=== PATIENT | female | born 1955 | race Caucasian/White ===

== ENCOUNTER → 2016-07-09 19:29 | Outpatient (CLI) | payer OTHER | END | disposition home or self-care (01) | LOC: D.LABREF 19:29 | DX: E28.39 Other primary ovarian failure (principal) ==

== ENCOUNTER → 2016-07-19 06:12 | Outpatient (CLI) | payer OTHER | END | disposition home or self-care (01) | LOC: D.RAD 07-06 08:00 | DX: K21.9 Gastro-esophageal reflux disease without esophagitis (principal) ==

== ENCOUNTER 2016-07-26 06:07 | Day surgery (SDC) | payer OTHER ==
[~2016-07-26] VITALS: Ht 175.3 cm; Wt 71.4 kg
--- NOTE | ~2016-07-26 | OP ---
PATIENT NAME: MAXWELL SHIELDS MEDICAL RECORD: [id number] :57 LOCATION:D.OPS ADMISSION DATE: SURGEON: ESTEBAN CHOI MD DATE OF OPERATION: 07/26/2016 PREOPERATIVE DIAGNOSES: 1. Gastroesophageal reflux disease. 2. Fibromyalgia. POSTOPERATIVE DIAGNOSES: 1. Gastroesophageal reflux disease. 2. Fibromyalgia. PROCEDURE: EGD with biopsy. SURGEON: Esteban Choi MD. REPORT OF PROCEDURE: An Olympus endoscope was advanced through the mouth and the esophagus. We were able to pass through the pylorus into the duodenum. I could visualize the second portion of the duodenum. I can see the ampulla. As we pulled back, there appeared to be a small polyp. Attempts were made to biopsy this, but this was in an unusual angle and as we kept moving in and out to try and get in good position, this eventually disappeared. We eventually decided this probably was not a polyp and just a piece of food particle that was stuck to the side wall, but eventually moved out of the way. The ampulla was clearly visualized and it did not appear to show any inflammation or masses. The duodenum itself had no sign of any ulcerations or masses present. As we pulled back to the pylorus, there was no sign of any inflammatory changes or gastritis. Random biopsy was taken of the antrum near the pylorus and sent for permanent specimen. Retroflexed view showed that there was no sign of a hiatal hernia visible. The stomach did house few hyperplastic polyps, but no signs of any adenomatous polyps. As we pulled back, we noticed that the GE junction was at 40 cm from the teeth. There was some inflammatory ulcerative lesions present. Biopsy was taken times 2 of the GE junction. There was no sign of any active bleeding anywhere. We then removed the insufflation and pulled the scope back slowly through the esophagus and we could see there were no signs of any masses or ulcerations. At this point, the procedure was completed. COMPLICATIONS: None. CONDITION: Stable. ANESTHESIA: TIVA. BLOOD LOSS: Minimal. TRANSINT:[id number] Voice Confirmation ID: [id number] DOCUMENT ID: [id number] OPERATIVE REPORT [id number] MAXWELL SHIELDS ESTEBAN CHOI MD CC: CHAR HANSON DO [id number] DICTATION DATE: 07/26/16 1012 MANAGER GREEN: 07/26/16 1124 [facility] [address] [place] [address]
[2016-07-26 07:11] LABS: HEMATOCRIT 41.5 % (36.0-48.0); HEMOGLOBIN 13.9 g/dL (12-16); MCHC 33.5 g/dL (31.0-37.0); MCV 95.4 fL (80.0-100.0); MEAN PLATELET VOLUME 9.9 fL (7.4-10.4); PLATELET COUNT 258 10x3/uL (130-400); RBC 4.35 10x6/uL (4.00-5.40); RDW 12.7 % (11.5-14.5); WBC 6.5 10x3/uL (4.8-10.8)
[2016-07-26 07:19] LABS: CALC OSMOLALITY 283 mosm/kg (275-300); CALCIUM 8.7 mg/dL (8.5-10.1); CARBON DIOXIDE 28.6 mmol/L (21.0-32.0); CHLORIDE - SERUM 107 mmol/L (98-107); CREATININE - SERUM 0.8 mg/dL (0.6-1.3); GLUCOSE 96 mg/dL (74-106); SODIUM 142 mmol/L (136-145); UREA NITROGEN 16 mg/dL (7-18); eGFR NON AFRICAN AMERICAN 77 mL/min (90-120)
[2016-07-26 07:35] LABS: EOSINOPHILS 1 % (0-7); LYMPHOCYTES 54 % (15-50); MONOCYTES 3 % (2-11); NEUTROPHILS 42 % (40-80); PLATELET ESTIMATE NORMAL
[2016-07-26] MEDS ORDERED: ESTRACE1 MG PO (08:10)
[2016-07-26] MEDS ORDERED: ZYRTEC10 MG PO (08:11)
[2016-07-26] MEDS ORDERED: CYCLOBENZAPRINE10 MG PO (08:11)
[2016-07-26] MEDS ORDERED: ZOVIRAX 5% CREAM5 GM TOPICAL (08:12)
[2016-07-26] MEDS ORDERED: NASONEX NASAL S17 GM NS (08:12)
[2016-07-26] MEDS ORDERED: GABAPENTIN100 MG PO (08:12)
[2016-07-26] MEDS ORDERED: LOPROX120 ML TP (08:13)
[2016-07-26] MEDS ORDERED: AMBIEN CR 6.26.25 MG PO (08:13)
[2016-07-26] MEDS ORDERED: MUCINEX D1 TAB.SR . PO (08:13)
[2016-07-26] MEDS ORDERED: OMEPRAZOLE40 MG PO (08:13)
[2016-07-26] MEDS ORDERED: [UNRECOGNIZED DRUG - OTHER] (08:14)
[2016-07-26] MEDS ORDERED: [UNRECOGNIZED DRUG - OTHER] (08:15)
[2016-07-26] MEDS ORDERED: ULTRAM50 MG PO (08:15)
[2016-07-26] MEDS ORDERED: ZETIA10 MG PO (08:16)
[2016-07-26] MEDS ORDERED: LOVAZA1 G PO (08:16)
[2016-07-26] MEDS ORDERED: ANDROGEL5 GM TP (08:17)
[2016-07-26] MEDS ORDERED: REGLAN5 MG PO (08:17)
[2016-07-26] MEDS ORDERED: JUBLIA (08:18)
[2016-07-26] MEDS ORDERED: LINZESS145 MCG PO (08:19)
[2016-07-26] MEDS ORDERED: VAGIFEM10 MCG VG (08:19)
[2016-07-26 08:29] VITALS: BP 114/67; Ht 175.3 cm; Wt 71.4 kg
--- NOTE | 2016-07-26 12:11 | NUR ---
2694 DISCHARGE INSTRUCTIONS REVIEWED WITH PATIENT PER ROD KRAUS RN; VERBALIZED UNDERSTANDING
== END 2016-07-26 11:20 | disposition home or self-care (01) ==
LOC: D.OPS 06:07
PROVIDERS: Surgery
DX: K21.9 Gastro-esophageal reflux disease without esophagitis (principal); M79.7 Fibromyalgia; K31.7 Polyp of stomach and duodenum; K20.8 Other esophagitis

== ENCOUNTER 2016-08-23 05:08 | Day surgery (SDC) | payer OTHER ==
[2016-08-23] VITALS (11 sets, daily range): BP systolic 108–141; BP diastolic 62–81; Ht 175.3 cm; Wt 72.7 kg
[~2016-08-23] VITALS: Ht 175.3 cm; Wt 72.7 kg
--- NOTE | ~2016-08-23 | OP ---
PATIENT NAME: MAXWELL SHIELDS MEDICAL RECORD: [id number] :57 LOCATION:D.MS [id number] ADMISSION DATE: SURGEON: ESTEBAN CHOI MD DATE OF OPERATION: 08/23/2016 DATE OF OPERATION: 08/23/2016 PREOPERATIVE DIAGNOSES: 1. Gastroesophageal reflux disease. 2. Fibromyalgia. POSTOPERATIVE DIAGNOSES: 1. Gastroesophageal reflux disease. 2. Fibromyalgia. PROCEDURE: Laparoscopic Moe fundoplication. SURGEON: Esteban Choi MD. REPORT OF PROCEDURE: The patient's abdomen was prepped and draped in sterile fashion. A Veress needle was inserted in the left upper quadrant and the abdomen was insufflated. An 11-mm Visiport trocar was then placed in the midline above the umbilicus. The Veress needle was inspected and there was no sign of any injury to bowel or surrounding structures. At this point, an 11-mm trocar was placed in the left subcostal region. A 5-mm trocar was placed in the epigastrium, a 5-mm trocar was placed in the left lateral abdomen and a 5-mm trocar was placed in the right lateral subcostal region. The liver retractor was inserted and the left lobe of the liver was elevated. The lesser omentum was taken down using Harmonic scalpel up to the right side of the right lamar. We continued this dissection anteriorly and posteriorly as far as we could. We eventually got into the thoracic cavity. The patient had an enlarge esophageal hiatus, but no sign of a hiatal hernia. The wound had this freed up as much as possible, then we went to the greater curvature of the stomach and took down the superior aspect of the short gastrics using Harmonic scalpel. We continued this dissection to the left side of the right lamar. Once we did this, we were able to completely dissect around the patient's esophagus. The patient's vagus nerves were inspected and were left intact. The esophageal hiatus was then reapproximated with interrupted 0 Polydek times 3. We then performed a 360 degree posterior wrap at the fundus of the stomach around the distal esophagus. This was done with 3 separate 0 Polydek sutures with the top and the bottom suture incorporating a bite of the esophagus. The wrap appeared to be in good position and did not appear to be too tight. The indwelling OG tube was then removed. At this point, we irrigated out the abdomen and assured there was no sign of any active bleeding. The two 11-mm trocar site fascias were then closed with 0 Vicryls using a Sourav-Jennifer suture passer device. The liver retractor was then removed. We then removed all insufflation and ports. The subcutaneous tissues were infused with a total of 20 mL of 0.25% Marcaine with epinephrine and then closed with subcutaneous 5-0 Monocryl. COMPLICATIONS: None. CONDITION: Stable. ANESTHESIA: General endotracheal and local. OPERATIVE REPORT [id number] MAXWELL SHIELDS BLOOD LOSS: Minimal. TRANSINT:[id number] Voice Confirmation ID: [id number] DOCUMENT ID: [id number] ESTEBAN CHOI MD CC: CHAR HANSON DO [id number] DICTATION DATE: 08/23/16927 CHAIRMAN & CHIEF EXECUTIVE OFFICER: 08/23/162049 [facility] [address] [place] [address]
[~2016-08-23 05:08] MED LIST: AMBIEN CR 6.26.25 MG PO; ANDROGEL5 GM TP; CYCLOBENZAPRINE10 MG PO; ESTRACE1 MG PO; GABAPENTIN100 MG PO; JUBLIA; LINZESS145 MCG PO; LOPROX120 ML TP; LOVAZA1 G PO; MUCINEX D1 TAB.SR . PO; NASONEX NASAL S17 GM NS; OMEPRAZOLE40 MG PO; REGLAN5 MG PO; ULTRAM50 MG PO; VAGIFEM10 MCG VG; ZETIA10 MG PO; ZOVIRAX 5% CREAM5 GM TOPICAL; ZYRTEC10 MG PO; [UNRECOGNIZED DRUG - OTHER]; [UNRECOGNIZED DRUG - OTHER]
[2016-08-23 06:09] LABS: BASOPHILS 0.4 % (0-2); HEMATOCRIT 42.3 % (36.0-48.0); IMMATURE GRANULOCYTES 0.3 % (0-5); LYMPHOCYTES 40.2 % (15-50); MCHC 33.1 g/dL (31.0-37.0); MCV 96.6 fL (80.0-100.0); MEAN PLATELET VOLUME 9.4 fL (7.4-10.4); NEUTROPHILS 48.1 % (40-80); PLATELET COUNT 238 10x3/uL (130-400); RBC 4.38 10x6/uL (4.00-5.40); RDW 13.2 % (11.5-14.5)
[2016-08-23] MEDS ORDERED: ASTEPRO30 M1 NASAL (06:18)
[2016-08-23] MEDS ORDERED: LOVAZA1 G PO (06:20)
[2016-08-23] MEDS ORDERED: AVITA TOPICAL (06:22)
[2016-08-23] MEDS ORDERED: RESTASIS EYE DR30 EA EACH EYE (06:22)
[2016-08-23] MEDS ORDERED: ACETYL L-CARNI500 MG PO (06:25)
[2016-08-23] MEDS ORDERED: CO Q-10400 MG PO (06:26)
[2016-08-23] MEDS ORDERED: PROBIOTIC1 EAC1 PO (06:26)
[2016-08-23] MEDS ORDERED: CITRACAL + D E1 EACH PO (06:26)
[2016-08-23] MEDS ORDERED: L-LYSINE500 M1 PO (06:27)
[2016-08-23] MEDS ORDERED: VITAMIN B-12250 MC3 PO (06:27)
[2016-08-23] MEDS ORDERED: VITAMIN C1000 MG PO (06:27)
[2016-08-23] MEDS ORDERED: VITAMIN D31000 UNIT PO (06:27)
[2016-08-23 06:34] LABS: CALC OSMOLALITY 278 mosm/kg (275-300); CALCIUM 8.7 mg/dL (8.5-10.1); CARBON DIOXIDE 27.6 mmol/L (21.0-32.0); CHLORIDE - SERUM 104 mmol/L (98-107); CREATININE - SERUM 0.8 mg/dL (0.6-1.3); GLUCOSE 101 mg/dL (74-106); POTASSIUM - SERUM 4.3 mmol/L (3.5-5.1); SODIUM 140 mmol/L (136-145); UREA NITROGEN 13 mg/dL (7-18); eGFR NON AFRICAN AMERICAN 77 mL/min (90-120)
--- NOTE | 2016-08-23 10:26 | NUR ---
PT REC'D TO ROOM VIA BED. ACCOMPANIED BY PACU STAFF. REPORT REC'D FROM CARLOS COLLIER. PT AAOX4 VSS. X5 LAP SITES TO ABD. 20 GUAGE PIV TO R FA. LR INFUSING. BANDAIDS TO LAP SITES CDI. SCD'S ON. BED LOW, CALL LIGHT IN REACH, DENIES NEEDS. CPOC.
[2016-08-23] MEDS ORDERED: NEURONTIN 400400 MG PO (10:32)
--- NOTE | 2016-08-23 13:33 | NUR ---
PT UP TO BATHROOM WITHOUT DIFFICULTY. J-LOOP TO R FOREARM CHANGED. SCD'S UNHOOKED. AMBULATED WITH PT AROUND NURSES STATION TWICE AND THEN TWO MORE TIMES WITH JUST HER . EXPLAINED PURPOSE OF EARLY AMBULATION TO PT AND NO QUESTIONS OR CONCERNS ARE VOICED AT THIS TIME.
--- NOTE | 2016-08-23 14:40 | NUR ---
[facility] NURSE INITIATED. INSTURCTED PT ON USE. NO QUESTIONS OR CONCERNS VOICED AT THIS TIME. WATER PROVIDED. BED LOW, CALL LIGHT IN REACH, DENIES NEEDS. CPOC.
[2016-08-24] VITALS: BP 104/61
[2016-08-24 04:00] VITALS: BP 128/80
[2016-08-24 05:53] LABS: BASOPHILS 0.3 % (0-2); EOSINOPHILS 0.3 % (0-7); HEMOGLOBIN 13.4 g/dL (12-16); IMMATURE GRANULOCYTES 0.3 % (0-5); MCH 31.8 pg (26.0-34.0); MCHC 32.7 g/dL (31.0-37.0); MCV 97.2 fL (80.0-100.0); MEAN PLATELET VOLUME 9.5 fL (7.4-10.4); MONOCYTES 7.8 % (2-11); NEUTROPHILS 65.3 % (40-80); PLATELET COUNT 261 10x3/uL (130-400); RBC 4.22 10x6/uL (4.00-5.40); RDW 13.3 % (11.5-14.5); WBC 11.2 10x3/uL (4.8-10.8)
[2016-08-24 06:09] LABS: ANION GAP 12.2 mmol/L (8-16); CALCIUM 8.3 mg/dL (8.5-10.1); CARBON DIOXIDE 26.9 mmol/L (21.0-32.0); CREATININE - SERUM 0.9 mg/dL (0.6-1.3); POTASSIUM - SERUM 4.1 mmol/L (3.5-5.1)
[2016-08-24 08:00] VITALS: BP 137/68
[2016-08-24 11:03] VITALS: BP 139/70
[2016-08-24] MEDS ORDERED: REGLAN10 MG PO (13:07)
[2016-08-24] MEDS ORDERED: HYDROCODONE-APA1 TAB PO (13:07)
[2016-08-24] MEDS ORDERED: PHENERGAN25 M1 PO (13:08)
--- NOTE | 2016-08-24 13:55 | NUR ---
DISCHARGE INSTRUCTIONS COMPLETED WITH PATIENT AND PATIENT'S . D/C IV WITH CATHETER INTACT. PATIENT LEFT VIA WHEELCHAIR.
== END 2016-08-24 13:55 | disposition home or self-care (01) ==
LOC: D.MS 05:08 → D.OPS 05:08 → D.PAN 07:30 → D.OPS 07:30 → D.MS 10:11 → D.OPS 08-24 13:55
PROVIDERS: Surgery
DX: K21.9 Gastro-esophageal reflux disease without esophagitis (principal); M79.7 Fibromyalgia; Z01.812 Encounter for preprocedural laboratory examination

== ENCOUNTER → 2016-11-20 18:15 | Outpatient (CLI) | payer OTHER ==
[2016-08-23 11:37] VITALS: BMI 23.6
[~2016-11-20 18:15] MED LIST changes: +ACETYL L-CARNI500 MG PO; +ASTEPRO30 M1 NASAL; +AVITA TOPICAL; +CITRACAL + D E1 EACH PO; +CO Q-10400 MG PO; +HYDROCODONE-APA1 TAB PO; +L-LYSINE500 M1 PO; +NEURONTIN 400400 MG PO; +PHENERGAN25 M1 PO; +PROBIOTIC1 EAC1 PO; +REGLAN10 MG PO; +RESTASIS EYE DR30 EA EACH EYE; +VITAMIN B-12250 MC3 PO; +VITAMIN C1000 MG PO; +VITAMIN D31000 UNIT PO
[2016-11-28 10:20] LABS: TESTOSTERONE - FREE 0.3 pg/mL (0.0-4.2); TESTOSTERONE - SERUM 37 ng/dL (3-41)
== END | disposition home or self-care (01) ==
LOC: D.LABREF 18:15
PROVIDERS: Family Medicine
DX: N95.9 Unspecified menopausal and perimenopausal disorder (principal)

== ENCOUNTER → 2016-11-27 11:07 | Outpatient (CLI) | payer OTHER ==
[2016-08-23 11:37] VITALS: BMI 23.6
== END | disposition home or self-care (01) ==
LOC: D.MRI 11:07
DX: M70.61 Trochanteric bursitis, right hip (principal)

== ENCOUNTER → 2016-12-25 18:01 | Outpatient (CLI) | payer OTHER ==
[2016-08-23 11:37] VITALS: BMI 23.6
== END | disposition home or self-care (01) ==
LOC: D.MAMMO 08:30 → D.US 09:30 → D.MAMMO 11:00
DX: Z00.01 Encounter for general adult medical examination with abnormal findings (principal)

== ENCOUNTER 2018-01-13 08:00 | Outpatient (CLI) | payer OTHER ==
[2016-08-23 11:37] VITALS: BMI 23.6
== END 2018-01-13 09:00 | disposition home or self-care (01) ==
LOC: D.MAMMO 08:00
DX: Z12.31 Encounter for screening mammogram for malignant neoplasm of breast (principal)